=== PATIENT | female | born 1990 | race Caucasian/White ===

== ENCOUNTER 2017-04-13 19:32 | Inpatient (IN) ==
[2017-04-13] MEDS ORDERED: KETOROLAC 30 MG/1 ML VIAL IV STA (20:44)
[2017-04-13 20:48] LABS: Basophils # 0.1 10*3/uL (0.0-0.2); Basophils % 0.5 % (0.0-0.8); Eosinophils # 0.2 10*3/uL (0.0-0.87); Eosinophils % 1.8 % (0.00-10.9); Hematocrit 39.2 VOL% (35.7-47.0); Hemoglobin 13.2 GM/DL (12.0-16.0); Immature Granulocytes % 0.6 %; Immature Granulocytes Absolute 0.08 #; Lymphocytes % 22.8 % (21.3-54.2); Mean Corpuscular HGB Conc 33.7 GM/DL (32-36); Mean Corpuscular Hemoglobin 31 PG (27-34); Mean Corpuscular Volume 92.5 FL (87-102); Monocytes # 0.8 10*3/uL (0.11-0.8); Monocytes % 5.9 % (1.7-12.7); Neutrophils # 8.9 10*3/uL (1.4-7.4); Neutrophils % 68.4 % (38.7-73.9); Platelet Count 271 T/CUMM (130-400); Red Blood Count 4.24 MC/CUMM (3.8-5.5); Red Cell Distribution Width 11.9 % (9.3-17.3); White Blood Count 13.1 T/CUMM (4-12)
[2017-04-13] MEDS ORDERED: KETOROLAC 30 MG/1 ML VIAL ONE (20:48)
[2017-04-13] MEDS ORDERED: KETOROLAC 30 MG/1 ML VIAL IM STA (20:51)
[2017-04-13 20:55] LABS: Apearance,Urine Slightly Hazy (Clear); Bacteria,Urine Few /HPF (Few); Bilirubin,Urine Negative (Negative); Blood, Urine Negative (Negative); Glucose,Urine (UA) Negative (Negative); Ketones,Urine Negative (Negative); Mucus,Urine Few /LPF (Occasional); Nitrite,Urine Negative (Negative); Protein,Urine Negative; RBC,Urine 2 /HPF (0-4); Squamous Epithelial Cell,Urine Occasional /HPF (0-10); Urine Color Yellow (Yellow); Urine Specific Gravity 1.027 (1.001-1.035); WBC,Urine 4 /HPF (0-6)
[2017-04-13] MEDS ORDERED: ONDANSETRON 4 MG/2 ML VIAL IV PRN (21:03)
[2017-04-13] MEDS ORDERED: ACETAMINOPHEN 325 MG TABLET PO PRN (21:03)
[2017-04-13 21:13] LABS: Alanine Aminotransferase 18 U/L (13-56); Albumin 4.1 G/DL (3.4-5.0); Alkaline Phosphatase 83 U/L (45-117); Aspartate Amino Transferase 18 U/L (0-37); Bilirubin,Total < 0.39 MG/DL (0.2-1.0); Blood Urea Nitrogen 16 MG/DL (7-18); Calcium 8.8 MG/DL (8.5-10.1); Glucose 101 MG/DL (74-106); Osmolality,Calculated 281.3 MOS/KG (273-304); Potassium 4.3 MMOL/L (3.5-5.1); Sodium 141 MMOL/L (136-145); Total Protein 7.1 G/DL (6.4-8.3)
[2017-04-13] MEDS: PIPERACILLIN/TAZOBACTAM 3,375 MG in SODIUM CHLORIDE 0.9% 100 ML IV SCH (22:49)
[2017-04-13] MEDS: LACTATED RINGERS 1,000 ML IV SCH (22:49)
[2017-04-14] MEDS: KETOROLAC 15 MG/1 ML VIAL IV PRN ×2 (04:26→14:03)
[2017-04-14] MEDS: PIPERACILLIN/TAZOBACTAM 3,375 MG in SODIUM CHLORIDE 0.9% 100 ML IV SCH (05:49)
[2017-04-14 07:48] LABS: Basophils % 0.4 % (0.0-0.8); Eosinophils # 0.3 10*3/uL (0.0-0.87); Hematocrit 36.5 VOL% (35.7-47.0); Hemoglobin 12.1 GM/DL (12.0-16.0); Immature Granulocytes % 0.5 %; Immature Granulocytes Absolute 0.05 #; Lymphocytes # 2.7 10*3/uL (1.4-4.0); Lymphocytes % 26.4 % (21.3-54.2); Mean Corpuscular HGB Conc 33.2 GM/DL (32-36); Mean Corpuscular Hemoglobin 31 PG (27-34); Mean Corpuscular Volume 92.2 FL (87-102); Mean Platelet Volume 10.3 FL (9.6-12.0); Monocytes # 0.8 10*3/uL (0.11-0.8); Monocytes % 7.5 % (1.7-12.7); Neutrophils # 6.4 10*3/uL (1.4-7.4); Neutrophils % 62.2 % (38.7-73.9); Platelet Count 239 T/CUMM (130-400); Red Blood Count 3.96 MC/CUMM (3.8-5.5); Red Cell Distribution Width 12.1 % (9.3-17.3); White Blood Count 10.2 T/CUMM (4-12)
[2017-04-14] MEDS ORDERED: TISSUE ADHESIVE 1 EACH APPLICATOR TOP ONE (08:14)
[2017-04-14] MEDS ORDERED: LIDOCAINE 1%/EPI INJ 20 ML VIAL ONE (08:15)
[2017-04-14] MEDS ORDERED: PANTOPRAZOLE 40 MG VIAL IV ONE (08:39)
[2017-04-14] MEDS ORDERED: PANTOPRAZOLE 40 MG TABLET PO SCH (09:00)
[2017-04-14] MEDS ORDERED: HYDROmorphone 2 MG/1 ML VIAL ONE (10:58)
[2017-04-14] MEDS ORDERED: HYDROmorphone 2 MG/1 ML VIAL IV ONE (11:06)
[2017-04-14] MEDS ORDERED: PROPOFOL 200 MG/20 ML VIAL IV ONE (12:26)
[2017-04-14] MEDS ORDERED: ONDANSETRON 4 MG/2 ML VIAL ONE (12:27)
[2017-04-14] MEDS ORDERED: fentaNYL 100 MCG/2 ML VIAL ONE (12:27)
[2017-04-14] MEDS ORDERED: MIDAZOLAM 2 MG/2 ML VIAL ONE (12:27)
[2017-04-14] MEDS ORDERED: GLYCOPYRROLATE 0.4 MG/2 ML VIAL ONE (12:27)
[2017-04-14] MEDS ORDERED: ROCURONIUM 100 MG/10 ML VIAL IV ONE (12:28)
[2017-04-14] MEDS ORDERED: ACETAMINOPHEN 1,000 MG/100 ML VIAL IV ONE (12:28)
[2017-04-14] MEDS ORDERED: NEOSTIGMINE 10 MG/10 ML VIAL ONE (12:28)
[2017-04-14 13:05] VITALS: BP 100/68
[2017-04-14] MEDS: LACTATED RINGERS 1,000 ML IV SCH ×2 (14:10→16:03)
[2017-04-14] MEDS ORDERED: CITALOPRAM 40 MG TABLET PO SCH (21:00)
[2017-04-14] MEDS ORDERED: MIRTAZAPINE 15 MG TABLET PO SCH (21:00)
== END 2017-04-14 15:55 | disposition home or self-care (01) | DRG 263 ==
LOC: N.ED 19:32 → N.EDINP 21:03 → N.3E 22:01
PROVIDERS: ADMIT Surgery; ATTEND Surgery
PROC: LAPCHOL (2017-04-14 11:15)

== ENCOUNTER 2018-01-17 17:30 | Inpatient (IN) ==
[2018-01-17] MEDS ORDERED: ONDANSETRON 4 MG/2 ML VIAL IV PRN ×2 (17:52→19:07)
[2018-01-17] MEDS ORDERED: MEPERIDINE 50 MG/1 ML VIAL IM PRN (17:52)
[2018-01-17] MEDS ORDERED: BUTORPHANOL 2 MG/ML VIAL IV PRN (17:52)
[2018-01-17] MEDS ORDERED: OXYTOCIN/LR 20 UNIT/1,000 ML BAG IV ONE ×2 (17:56→19:24)
[2018-01-17] MEDS ORDERED: OXYTOCIN 10 UNIT/ML VIAL ONE (17:57)
[2018-01-17] MEDS ORDERED: LACTATED RINGERS 1,000 ML IV SCH (18:00)
[2018-01-17] MEDS ORDERED: OXYTOCIN/LR 20 UNIT/1,000 ML BAG IV SCH (18:00)
[2018-01-17 18:25] LABS: Basophils # 0.1 10*3/uL (0.0-0.2); Basophils % 0.3 % (0.0-0.8); Eosinophils # 0.1 10*3/uL (0.0-0.87); Eosinophils % 0.6 % (0.00-10.9); Hemoglobin 13.5 GM/DL (12.0-16.0); Immature Granulocytes % 2.3 %; Immature Granulocytes Absolute 0.35 #; Lymphocytes % 19.3 % (21.3-54.2); Mean Corpuscular HGB Conc 32.1 GM/DL (32-36); Mean Corpuscular Hemoglobin 30 PG (27-34); Mean Corpuscular Volume 92.7 FL (87-102); Mean Platelet Volume 10.8 FL (9.6-12.0); Monocytes % 6.6 % (1.7-12.7); Neutrophils % 70.9 % (38.7-73.9); Platelet Count 263 T/CUMM (130-400); Red Blood Count 4.53 MC/CUMM (3.8-5.5); Red Cell Distribution Width 13.4 % (9.3-17.3); White Blood Count 15.5 T/CUMM (4-12)
[2018-01-17 18:57] LABS: Apearance,Urine Hazy (Clear); Glucose,Urine (UA) Negative (Negative); Ketones,Urine Negative (Negative); Protein,Urine Negative; Urine Color Yellow (Yellow); Urine Specific Gravity 1.015 (1.001-1.035)
[2018-01-17 18:58] LABS: Bilirubin,Urine Negative (Negative); Blood, Urine Small mg/dL (Negative); Nitrite,Urine Negative (Negative)
[2018-01-17 18:59] LABS: Barbiturates Screen,Urine Negative (Negative); Benzodiazepines Screen,Urine Negative (Negative); Cannabinoid Screen,Urine Negative (Negative); Mucus,Urine Few /LPF (Occasional); Opiate Screen,Urine Negative (Negative); Phencyclidine Screen,Urine Negative (Negative); RBC,Urine 5 /HPF (0-4); Squamous Epithelial Cell,Urine Few /HPF (0-10); WBC,Urine 1 /HPF (0-6)
[2018-01-17] MEDS ORDERED: WITCH HAZEL PADS 100/JAR TOP PRN (19:07)
[2018-01-17] MEDS ORDERED: BISACODYL 10 MG SUPP RECTAL PRN (19:07)
[2018-01-17] MEDS ORDERED: LANOLIN 50% CREAM 0.3 OZ TUBE TOP PRN (19:07)
[2018-01-17] MEDS ORDERED: RHO(D) IMMUNE GLOBULIN 300 MCG SYRINGE IM ONE (19:07)
[2018-01-17] MEDS ORDERED: ACETAMINOPHEN 500 MG TABLET PO SCH (19:07)
[2018-01-17] MEDS ORDERED: HYDROCORTISONE 2.5% RECTAL CREAM 30 GM TUBE TOP PRN (19:07)
[2018-01-17] MEDS ORDERED: KETOROLAC 30 MG/1 ML VIAL IV SCH (19:07)
[2018-01-17] MEDS ORDERED: BENZOCAINE 20%/MENTHOL 0.5% SPRAY 56 GM CAN TOP PRN (19:07)
[2018-01-17] MEDS ORDERED: DIPH/TET/ACEL PERT BOOSTER VACCINE 0.5 ML VIAL IM ONE (19:07)
[2018-01-17] MEDS ORDERED: MEASLES/MUMPS/RUBELLA VACCINE 0.5 ML VIAL SUBCUT ONE (19:07)
[2018-01-17] MEDS: IBUPROFEN 800 MG TABLET PO PRN (19:22)
[2018-01-17] MEDS: DOCUSATE SODIUM 100 MG CAPSULE PO SCH (21:15)
[2018-01-18] MEDS ORDERED: ACETAMINOPHEN 500 MG TABLET PO SCH (00:27)
[2018-01-18] MEDS: KETOROLAC 30 MG/1 ML VIAL IV SCH ×3 (03:01→09:12)
[2018-01-18] MEDS: ACETAMINOPHEN 500 MG TABLET PO SCH ×4 (03:01→20:57)
[2018-01-18 04:10] LABS: Basophils % 0.2 % (0.0-0.8); Eosinophils # 0.1 10*3/uL (0.0-0.87); Eosinophils % 0.6 % (0.00-10.9); Hematocrit 31.8 VOL% (35.7-47.0); Hemoglobin 10.4 GM/DL (12.0-16.0); Immature Granulocytes % 1.5 %; Immature Granulocytes Absolute 0.24 #; Lymphocytes # 2.6 10*3/uL (1.4-4.0); Lymphocytes % 15.9 % (21.3-54.2); Mean Corpuscular HGB Conc 32.7 GM/DL (32-36); Mean Corpuscular Hemoglobin 30 PG (27-34); Mean Platelet Volume 10.9 FL (9.6-12.0); Neutrophils # 12.4 10*3/uL (1.4-7.4); Neutrophils % 75.8 % (38.7-73.9); Platelet Count 188 T/CUMM (130-400); Red Blood Count 3.42 MC/CUMM (3.8-5.5); Red Cell Distribution Width 13.3 % (9.3-17.3); White Blood Count 16.4 T/CUMM (4-12)
[2018-01-18] MEDS: IBUPROFEN 800 MG TABLET PO PRN ×2 (07:33→15:44)
[2018-01-18] MEDS ORDERED: BUPRENORPHINE PO SCH (09:00)
[2018-01-18] MEDS: DOCUSATE SODIUM 100 MG CAPSULE PO SCH ×2 (09:06→20:58)
[2018-01-18] MEDS: FERROUS SULFATE 325 MG TABLET PO SCH ×2 (09:26→20:58)
[2018-01-19] MEDS: ACETAMINOPHEN 500 MG TABLET PO SCH ×2 (02:53→13:35)
[2018-01-19 07:12] VITALS: BP 126/72
[2018-01-19] MEDS: DOCUSATE SODIUM 100 MG CAPSULE PO SCH (10:03)
[2018-01-19] MEDS: FERROUS SULFATE 325 MG TABLET PO SCH (10:03)
== END 2018-01-19 14:45 | disposition home or self-care (01) | DRG 560 ==
LOC: N.LDOUT 17:30 → N.LD 17:37 → N.OB 20:08
PROVIDERS: ADMIT Obstetrics & Gynecology; ATTEND Obstetrics & Gynecology

== ENCOUNTER 2019-06-09 11:45 | Inpatient (IN) ==
[2019-06-09] MEDS ORDERED: ONDANSETRON 4 MG/2 ML VIAL IV PRN ×2 (12:47→20:04)
[2019-06-09] MEDS ORDERED: ACETAMINOPHEN 325 MG TABLET PO PRN ×2 (12:47→20:04)
[2019-06-09] MEDS ORDERED: BUTORPHANOL 2 MG/ML VIAL IV PRN (12:47)
[2019-06-09] MEDS ORDERED: OXYTOCIN/LR 20 UNIT/1,000 ML BAG IV SCH (13:00)
[2019-06-09] MEDS ORDERED: LACTATED RINGERS 1,000 ML IV SCH (13:00)
[2019-06-09 13:05] LABS: Basophils # 0.1 10*3/uL (0.0-0.2); Basophils % 0.5 % (0.0-0.8); Eosinophils # 0.1 10*3/uL (0.0-0.87); Eosinophils % 1.2 % (0.00-10.9); Hematocrit 40.7 VOL% (35.7-47.0); Hemoglobin 13.3 GM/DL (12.0-16.0); Immature Granulocytes % 2.1 %; Immature Granulocytes Absolute 0.23 #; Lymphocytes # 2.3 10*3/uL (1.4-4.0); Lymphocytes % 20.8 % (21.3-54.2); Mean Corpuscular HGB Conc 32.7 GM/DL (32-36); Mean Corpuscular Volume 95.5 FL (87-102); Monocytes % 6.8 % (1.7-12.7); Neutrophils % 68.6 % (38.7-73.9); Platelet Count 265 T/CUMM (130-400); Red Blood Count 4.26 MC/CUMM (3.8-5.5); White Blood Count 10.9 T/CUMM (4-12)
[2019-06-09 13:21] LABS: Albumin 2.9 G/DL (3.4-5.0); Bilirubin,Total 0.4 MG/DL (0.2-1.0); Calcium 8.4 MG/DL (8.5-10.1); Osmolality,Calculated 272.7 MOS/KG (273-304); Total Protein 7.3 G/DL (6.4-8.3)
[2019-06-09] MEDS ORDERED: AMPICILLIN INJ 2,000 MG in SODIUM CHLORIDE 0.9% 100 ML IV ONE (13:36)
[2019-06-09] MEDS ORDERED: MEPERIDINE 50 MG/1 ML VIAL IV PRN (15:54)
[2019-06-09] MEDS ORDERED: AMPICILLIN 1,000 MG VIAL ONE (16:30)
[2019-06-09] MEDS ORDERED: diphenhydrAMINE 50 MG/1 ML VIAL IV PRN ×2 (17:19)
[2019-06-09] MEDS ORDERED: LACTATED RINGERS 1,000 ML IV ONE (17:19)
[2019-06-09] MEDS ORDERED: ePHEDrine 50 MG/ML AMP IV PRN (17:19)
[2019-06-09] MEDS ORDERED: hydrOXYzine HCL 25 MG/1 ML VIAL IM PRN (17:19)
[2019-06-09] MEDS ORDERED: NALOXONE 0.4 MG/ML VIAL IV PRN (17:19)
[2019-06-09] MEDS ORDERED: CITRIC ACID/SODIUM CITRATE 30 ML UDCUP PO ONE (17:19)
[2019-06-09] MEDS ORDERED: FAMOTIDINE 20 MG/2 ML VIAL IV ONE (17:19)
[2019-06-09] MEDS ORDERED: ONDANSETRON 4 MG/2 ML VIAL IV ONE (17:30)
[2019-06-09] MEDS ORDERED: PROMETHAZINE 25 MG/1 ML VIAL IM ONE (17:30)
[2019-06-09] MEDS ORDERED: AMPICILLIN INJ 1,000 MG in SODIUM CHLORIDE 0.9% 100 ML IV SCH (17:30)
[2019-06-09] MEDS ORDERED: fentaNYL 2 MCG/ROPIV 0.2% EPID 100 ML EPIDURAL SCH (17:30)
[2019-06-09 18:43] LABS: Apearance,Urine CLEAR (Clear); Bilirubin,Urine Negative (Negative); Blood, Urine Negative (Negative); Glucose,Urine (UA) Negative (Negative); Ketones,Urine 5 mg/dL (Negative); Mucus,Urine Occasional /LPF (Occasional); Nitrite,Urine Negative (Negative); Protein,Urine Negative; RBC,Urine 1 /HPF (0-4); Squamous Epithelial Cell,Urine Occasional /HPF (0-10); Urine Color Yellow (Yellow); Urine Specific Gravity 1.012 (1.001-1.035); Urine Urobilinogen < 2.0 EU/DL (0.2-1.0); WBC,Urine <1 /HPF (0-6)
[2019-06-09] MEDS ORDERED: TRANEXAMIC ACID 1,000 MG/10 ML VIAL ONE (19:27)
[2019-06-09] MEDS ORDERED: CARBOPROST TROMETHAMINE 250 MCG/ML AMP IM ONE (19:27)
[2019-06-09] MEDS ORDERED: OXYTOCIN/LR 20 UNIT/1,000 ML BAG IV ONE ×2 (19:27→20:04)
[2019-06-09] MEDS ORDERED: miSOPROStoL 200 MCG TABLET ONE (19:27)
[2019-06-09] MEDS ORDERED: METHYLERGONOVINE 0.2 MG/1 ML AMP ONE (19:27)
[2019-06-09] MEDS ORDERED: SODIUM CHLORIDE 0.9% 0 ML IV ONE (19:28)
[2019-06-09] MEDS ORDERED: BENZOCAINE 20%/MENTHOL 0.5% SPRAY 56 GM CAN TOP PRN (20:04)
[2019-06-09] MEDS ORDERED: HYDROCORTISONE 2.5% RECTAL CREAM 30 GM TUBE TOP PRN (20:04)
[2019-06-09] MEDS ORDERED: WITCH HAZEL PADS 100/JAR TOP PRN (20:04)
[2019-06-09] MEDS ORDERED: BISACODYL 10 MG SUPP RECTAL PRN (20:04)
[2019-06-09] MEDS ORDERED: DIPH/TET/ACEL PERT BOOSTER VACCINE 0.5 ML VIAL IM ONE (20:04)
[2019-06-09] MEDS ORDERED: oxyCODONE/ACETAMINOPHEN 5-325 MG TABLET PO PRN ×2 (20:04)
[2019-06-09] MEDS ORDERED: LANOLIN 50% CREAM 0.3 OZ TUBE TOP PRN (20:04)
[2019-06-09] MEDS ORDERED: MEASLES/MUMPS/RUBELLA VACCINE 0.5 ML VIAL SUBCUT ONE (20:04)
[2019-06-09] MEDS ORDERED: RHO(D) IMMUNE GLOBULIN 300 MCG SYRINGE IM ONE (20:04)
[2019-06-09 20:27] LABS: Cord Venous Blood HCO3 24.5 MMOL/L; Cord Venous Blood PCO2 41.2 MMHG; Cord Venous Blood PO2 28.7
[2019-06-09 20:28] LABS: Cord Arterial Blood HCO3 21.4 MMOL/L
[2019-06-09] MEDS: DOCUSATE SODIUM 100 MG CAPSULE PO SCH (23:24)
[2019-06-09] MEDS: IBUPROFEN 800 MG TABLET PO PRN (23:24)
[2019-06-10] MEDS ORDERED: ACETAMINOPHEN 500 MG TABLET ONE (04:37)
[2019-06-10] MEDS: ACETAMINOPHEN 500 MG TABLET PO PRN ×2 (04:39→19:39)
[2019-06-10] MEDS: IBUPROFEN 800 MG TABLET PO PRN ×3 (05:10→19:38)
[2019-06-10 06:14] LABS: Basophils % 0.2 % (0.0-0.8); Eosinophils # 0.2 10*3/uL (0.0-0.87); Eosinophils % 1.1 % (0.00-10.9); Hemoglobin 11.6 GM/DL (12.0-16.0); Immature Granulocytes % 1.5 %; Immature Granulocytes Absolute 0.25 #; Lymphocytes # 3.3 10*3/uL (1.4-4.0); Lymphocytes % 20.1 % (21.3-54.2); Mean Corpuscular HGB Conc 32.2 GM/DL (32-36); Mean Corpuscular Volume 96.8 FL (87-102); Mean Platelet Volume 9.9 FL (9.6-12.0); Monocytes % 7.2 % (1.7-12.7); Neutrophils % 69.9 % (38.7-73.9); Platelet Count 218 T/CUMM (130-400); Red Blood Count 3.72 MC/CUMM (3.8-5.5); White Blood Count 16.2 T/CUMM (4-12)
[2019-06-10] MEDS: DOCUSATE SODIUM 100 MG CAPSULE PO SCH ×2 (08:10→22:40)
[2019-06-10] MEDS: BUPRENORPHINE SL TAB 2 MG TABLET SL SCH (12:20)
[2019-06-11] MEDS: IBUPROFEN 800 MG TABLET PO PRN (05:35)
[2019-06-11] MEDS: ACETAMINOPHEN 500 MG TABLET PO PRN (05:36)
[2019-06-11 09:41] VITALS: BP 104/58
[2019-06-11] MEDS: DOCUSATE SODIUM 100 MG CAPSULE PO SCH (09:55)
[2019-06-11] MEDS: BUPRENORPHINE SL TAB 2 MG TABLET SL SCH (09:55)
== END 2019-06-11 14:00 | disposition home or self-care (01) | DRG 560 ==
LOC: N.LD 11:45 → N.LDOUT 11:45 → N.LD 12:47 → N.OB 23:10
PROVIDERS: ADMIT Obstetrics & Gynecology; ATTEND Obstetrics & Gynecology

== ENCOUNTER 2021-09-05 17:53 | Inpatient (IN) ==
[2021-09-05] MEDS ORDERED: ONDANSETRON 4 MG/2 ML VIAL IV PRN (20:42)
[2021-09-05 21:04] LABS: Basophils % 0.3 % (0.0-0.8); Eosinophils % 0.2 % (0.00-10.9); Hematocrit 37.7 VOL% (35.7-47.0); Hemoglobin 12.3 GM/DL (12.0-16.0); Immature Granulocytes % 1.9 %; Immature Granulocytes Absolute 0.22 #; Lymphocytes % 8.6 % (21.3-54.2); Mean Corpuscular HGB Conc 32.6 GM/DL (32-36); Mean Corpuscular Volume 99.5 FL (87-102); Mean Platelet Volume 9.8 FL (9.6-12.0); Monocytes % 2.1 % (1.7-12.7); Neutrophils % 86.9 % (38.7-73.9); Platelet Count 204 T/CUMM (130-400); Red Blood Count 3.79 MC/CUMM (3.8-5.5); Red Cell Distribution Width 13.2 % (9.3-17.3); White Blood Count 11.3 T/CUMM (4-12)
[2021-09-05 21:36] LABS: Alanine Aminotransferase 18 U/L (13-56); Albumin 2.8 G/DL (3.4-5.0); Alkaline Phosphatase 173 U/L (45-117); Aspartate Amino Transferase 20 U/L (0-37); Bilirubin,Total < 0.39 MG/DL (0.20-1.00); Blood Urea Nitrogen 7 MG/DL (7-18); Calcium 8.9 MG/DL (8.5-10.1); Carbon Dioxide 22 MMOL/L (21-32); Estimated Glom Filtration Rate 149 ML/MIN; Glucose 106 MG/DL (74-106); Osmolality,Calculated 267.1 MOS/KG (273-304); Potassium 4.7 MMOL/L (3.5-5.1); Sodium 135 MMOL/L (136-145); Total Protein 7.2 G/DL (6.4-8.2)
[2021-09-06] MEDS: LACTATED RINGERS 1,000 ML IV SCH ×2 (03:17→09:59)
[2021-09-06] MEDS ORDERED: OXYTOCIN/LR 20 UNIT/1,000 ML BAG IV SCH (03:30)
[2021-09-06] MEDS ORDERED: LACTATED RINGERS 1,000 ML IV ONE (04:58)
[2021-09-06] MEDS ORDERED: FAMOTIDINE 20 MG/2 ML VIAL IV ONE ×2 (04:58→05:03)
[2021-09-06] MEDS ORDERED: hydrOXYzine HCL 25 MG/1 ML VIAL IM PRN (04:58)
[2021-09-06] MEDS ORDERED: diphenhydrAMINE 50 MG/1 ML VIAL IV PRN ×2 (04:58)
[2021-09-06] MEDS ORDERED: ONDANSETRON 4 MG/2 ML VIAL IV ONE (04:58)
[2021-09-06] MEDS ORDERED: PROMETHAZINE 25 MG/1 ML VIAL IM ONE (04:58)
[2021-09-06] MEDS ORDERED: ePHEDrine 50 MG/ML VIAL IV PRN (04:58)
[2021-09-06] MEDS ORDERED: NALOXONE 0.4 MG/ML VIAL IV PRN (04:58)
[2021-09-06] MEDS ORDERED: CITRIC ACID/SODIUM CITRATE 30 ML UDCUP PO ONE (04:58)
[2021-09-06] MEDS ORDERED: CITRIC ACID/SODIUM CITRATE 30 ML UDCUP ONE (05:02)
[2021-09-06] MEDS: fentaNYL 2 MCG/ROPIV 0.2% EPID 100 ML EPIDURAL SCH ×3 (05:26→19:24)
[2021-09-06 07:51] LABS: Hyaline Casts,Urine 13 /LPF (0-3); Mucus,Urine Few /LPF (Occasional); RBC,Urine 2 /HPF (0-4); Squamous Epithelial Cell,Urine Occasional /HPF (0-10)
[2021-09-06 07:53] LABS: Bilirubin,Urine Negative (Negative); Blood, Urine Negative (Negative); Glucose,Urine (UA) Negative (Negative); Ketones,Urine 2+ mg/dL (Negative); Nitrite,Urine Negative (Negative); Protein,Urine Trace mg/dL (Negative); Urine Appearance Clear (Clear); Urine Color Yellow (Yellow); Urine Specific Gravity 1.025 (1.001-1.035); Urine Urobilinogen 0.2 eU/dL (<2.0)
[2021-09-06] MEDS: BUPRENORPHINE SL TAB 2 MG TABLET SL SCH ×2 (09:03→22:11)
[2021-09-06] MEDS ORDERED: fentaNYL 100 MCG/2 ML VIAL ONE (12:27)
[2021-09-06] MEDS ORDERED: LIDOCAINE MPF 2% /EPI 20 ML VIAL ONE (12:27)
[2021-09-06] MEDS ORDERED: OXYTOCIN/LR 30 UNIT/1,000 ML BAG IV ONE (18:11)
[2021-09-06 18:55] LABS: Cord Arterial Blood HCO3 21.9 MMOL/L
[2021-09-06 18:58] LABS: Cord Venous Blood HCO3 23.5 MMOL/L; Cord Venous Blood PCO2 38.9 MMHG; Cord Venous Blood PO2 40.7
[2021-09-06] MEDS ORDERED: LANOLIN 50% CREAM 0.3 OZ TUBE TOP PRN (19:07)
[2021-09-06] MEDS ORDERED: oxyCODONE/ACETAMINOPHEN 5-325 MG TABLET PO PRN ×2 (19:07)
[2021-09-06] MEDS ORDERED: RHO(D) IMMUNE GLOBULIN 300 MCG SYRINGE IM ONE (19:07)
[2021-09-06] MEDS ORDERED: BENZOCAINE 20%/MENTHOL 0.5% SPRAY 56 GM CAN TOP PRN (19:07)
[2021-09-06] MEDS ORDERED: WITCH HAZEL PADS 100/JAR TOP PRN (19:07)
[2021-09-06] MEDS ORDERED: ACETAMINOPHEN 325 MG TABLET PO PRN (19:07)
[2021-09-06] MEDS ORDERED: ONDANSETRON 4 MG/2 ML VIAL IV PRN (19:07)
[2021-09-06] MEDS ORDERED: HYDROCORTISONE 2.5% RECTAL CREAM 30 GM TUBE TOP PRN (19:07)
[2021-09-06] MEDS ORDERED: MEASLES/MUMPS/RUBELLA VACCINE 0.5 ML VIAL SUBCUT ONE (19:07)
[2021-09-06] MEDS ORDERED: OXYTOCIN/LR 20 UNIT/1,000 ML BAG IV ONE (19:07)
[2021-09-06] MEDS ORDERED: BISACODYL 10 MG SUPP RECTAL PRN (19:07)
[2021-09-06] MEDS ORDERED: DIPH/TET/ACEL PERT BOOSTER VACCINE 0.5 ML VIAL IM ONE (19:07)
[2021-09-06] MEDS: DOCUSATE SODIUM 100 MG CAPSULE PO SCH (23:03)
[2021-09-07] MEDS: IBUPROFEN 800 MG TABLET PO PRN ×2 (03:57→20:05)
[2021-09-07 05:35] LABS: Basophils % 0.2 % (0.0-0.8); Eosinophils # 0.2 10*3/uL (0.0-0.87); Eosinophils % 1.2 % (0.00-10.9); Hematocrit 37.9 VOL% (35.7-47.0); Hemoglobin 12.1 GM/DL (12.0-16.0); Immature Granulocytes % 1.7 %; Immature Granulocytes Absolute 0.25 #; Lymphocytes % 14.1 % (21.3-54.2); Mean Corpuscular HGB Conc 31.9 GM/DL (32-36); Mean Corpuscular Volume 101.3 FL (87-102); Mean Platelet Volume 10.2 FL (9.6-12.0); Monocytes % 7.7 % (1.7-12.7); Neutrophils % 75.1 % (38.7-73.9); Platelet Count 210 T/CUMM (130-400); Red Blood Count 3.74 MC/CUMM (3.8-5.5); Red Cell Distribution Width 13.3 % (9.3-17.3); White Blood Count 14.3 T/CUMM (4-12)
[2021-09-07] MEDS: BUPRENORPHINE SL TAB 2 MG TABLET SL SCH ×2 (09:30→21:32)
[2021-09-07] MEDS: DOCUSATE SODIUM 100 MG CAPSULE PO SCH ×2 (09:30→21:33)
[2021-09-07] MEDS ORDERED: BENZOCAINE 20% ORAL GEL 11.9 GM TUBE TOP PRN (19:58)
[2021-09-08] MEDS: DOCUSATE SODIUM 100 MG CAPSULE PO SCH (09:13)
[2021-09-08] MEDS: BUPRENORPHINE SL TAB 2 MG TABLET SL SCH (09:14)
[2021-09-08 13:14] VITALS: BP 137/78
== END 2021-09-08 12:15 | disposition home or self-care (01) | DRG 560 ==
LOC: N.LD 17:53 → N.OB 09-06 22:40
PROVIDERS: ADMIT Obstetrics & Gynecology; ATTEND Obstetrics & Gynecology